=== PATIENT | female | born 1950 | race Two or more races ===

== ENCOUNTER 2019-06-29 11:29 | Outpatient (CLI) | payer OTHER | END 2019-06-29 11:42 | disposition home or self-care (01) | LOC: SONOGRAMA 11:29 | DX: N60.11 Diffuse cystic mastopathy of right breast (principal); N60.12 Diffuse cystic mastopathy of left breast; R92.0 Mammographic microcalcification found on diagnostic imaging of breast ==

== ENCOUNTER 2019-07-24 06:45 | Day surgery (SDC) | payer OTHER ==
[~2019-07-24 06:45] MED LIST: COZAAR100 MG PO; GLYCOTROL CAPS1 EACH PO; GORDON'S VITE A75 GM PO; NEPHRONEX-SL T1 EACH PO; SYNTHROID112 MCG PO; VERAPAM PO; VITAMIN D310 MCG/1 M PO
== END 2019-07-24 17:40 | disposition home or self-care (01) ==
LOC: CIR.AMB 06:45
DX: D05.12 Intraductal carcinoma in situ of left breast (principal); D24.1 Benign neoplasm of right breast

== ENCOUNTER 2019-09-25 13:20 | Outpatient (CLI) | payer OTHER | END 2019-09-25 13:24 | disposition home or self-care (01) | LOC: SONOGRAMA 13:20 | DX: N61.1 Abscess of the breast and nipple (principal); R92.0 Mammographic microcalcification found on diagnostic imaging of breast ==

== ENCOUNTER 2019-09-25 16:23 | Outpatient (CLI) | payer OTHER | END 2019-09-25 18:00 | disposition home or self-care (01) | LOC: LAB 16:23 | DX: N61.1 Abscess of the breast and nipple (principal) ==

== ENCOUNTER 2019-11-06 06:38 | Day surgery (SDC) | payer OTHER | END 2019-11-06 14:05 | disposition home or self-care (01) | LOC: CIR.AMB 06:38 | DX: C50.812 Malignant neoplasm of overlapping sites of left female breast (principal); D24.1 Benign neoplasm of right breast | CPT/HCPCS: 36561; C1751 ==

== ENCOUNTER 2022-10-31 05:56 | Day surgery (SDC) | payer OTHER ==
[~2022-10-31] VITALS: Ht 149.9 cm; Wt 68.9 kg
[~2022-10-31 05:56] MED LIST changes: +DILTIAZEM ER120 M2 PO
== END 2022-10-31 14:00 | disposition home or self-care (01) ==
LOC: CIR.AMB 05:56
PROVIDERS: ATTEND Colon & Rectal Surgery
DX: C50.111 Malignant neoplasm of central portion of right female breast (principal); C43.52 Malignant melanoma of skin of breast; Z20.822 Contact with and (suspected) exposure to COVID-19; I10 Essential (primary) hypertension